=== PATIENT | male | born 1945 | race Caucasian/White ===

== ENCOUNTER 2017-10-14 12:30 | Emergency (ER) | payer OTHER ==
[~2017-10-14] VITALS: Ht 175.3 cm; Wt 105.0 kg
[~2017-10-14 12:30] MED LIST: ADULT LOW DOSE81 M1 PO; ADVAIR 250/501 DISK IH; ASPIRIN CHEWABL81 M1 PO; COMBIVENT INH14.7 GM IH; COMBIVENT RESPIM4 GM IH; CRESTOR40 MG PO; Combivent; Combivent IH; DULERA 100 MCG/13 GM IH; ENDOCET 5-3251 EACH PO; FLONASE16 G1 BOTH NARES; GLUCOPHAGE500 MG PO; Glucophage PO; KADIAN10 MG PO; Kadian PO; MUCINEX D ER T1 EACH PO; NAPROSYN500 MG PO; NEURONTIN800 MG PO; NEXIUM40 MG PO; NITROGLYCERIN0.4 MG SL; PLAVIX75 MG PO; PRINIVIL10 MG PO; PROTONIX40 MG PO; ROXICET 5-3251 EACH PO; TOPROL XL50 MG PO; TRICOR145 MG PO; Tricor PO; ZESTRIL,PRINIVI10 M1 PO
[2017-10-14 13:34] LABS: HEMATOCRIT 43.7 % (38.0-50.0); HEMOGLOBIN 14.4 G/DL (12.5-16.6); MCH 29.9 PG (29.0-34.0); MCV 90.9 FL (86-99); PLATELET COUNT 178 K/uL (156-360); RBC DIS.WIDTH-CV 13.7 % (11.8-14.6); RBC DIS.WIDTH-SD 45.8 % (39-53); RED BLOOD COUNT 4.81 M/uL (4.00-5.50); WHITE BLOOD COUNT 6.2 K/uL (4.1-10.2)
[2017-10-14 13:45] LABS: CHLORIDE 107 mEq/L (99-109); POTASSIUM 4.1 mEq/L (3.7-5.4); SODIUM 141 mEq/L (136-147)
[2017-10-14 13:47] LABS: GLUCOSE 183 mg/dL (70-99)
[2017-10-14 13:51] LABS: GFR ESTIMATE (CALCULATED) > 59 mL/min/ (58.99-99999); UREA NITROGEN (BUN) 22 mg/dL (9-23)
[2017-10-14 13:55] LABS: TROP-I INTERPRETATION NEGATIVE; TROPONIN-I < 0.01 ng/mL (0.0-0.30)
[2017-10-14] MEDS ORDERED: KEPPRA500 MG PO (16:43)
[2017-10-14 16:55] VITALS: BP 130/89
== END 2017-10-14 16:55 | disposition home or self-care (01) ==
LOC: EME 12:30
PROVIDERS: Emergency Medicine
DX: R56.9 Unspecified convulsions (principal); E11.9 Type 2 diabetes mellitus without complications; J44.9 Chronic obstructive pulmonary disease, unspecified; I10 Essential (primary) hypertension; K21.9 Gastro-esophageal reflux disease without esophagitis; Z95.1 Presence of aortocoronary bypass graft; F17.200 Nicotine dependence, unspecified, uncomplicated
CPT/HCPCS: 70450; 80048; 84484; 85027; 93005; 99281; 99283